=== PATIENT | female | born 1970 | race Hispanic/Latino ===

== ENCOUNTER 2017-02-16 16:37 | Inpatient (IN) | payer BC ==
[~2017-02-16] VITALS: Ht 152.4 cm; Wt 123.0 kg
[~2017-02-16 16:37] MED LIST: LOSARTAN POTAS100 MG PO; losartan PO
[2017-02-16] MEDS ORDERED: IBUPROFEN 400 MG TAB PO ONE (17:00)
[2017-02-16] MEDS ORDERED: ACETAMINOPHEN 325 MG TAB PO ONE (17:00)
[2017-02-16] MEDS ORDERED: ONDANSETRON HCL INJ 2 MG/ML VIAL IV STA (17:08)
[2017-02-16 17:45] LABS: BASOPHILS % 0.2 % (0.0-1.0); EOSINOPHILS % 0.1 % (0.0-6.0); HEMATOCRIT 39.5 % (34.2-44.1); HEMOGLOBIN 13.6 g/dL (12.0-16.0); LYMPHOCYTES # (AUTO) 0.5 (1.0-3.2); MEAN CORPUSCULAR HEMOGLOBIN 29.1 pg (28-32); MEAN CORPUSCULAR HGB CONC 34.4 g/dL (31-35); MEAN CORPUSCULAR VOLUME 84.6 fL (81-99); MONOCYTES # (AUTO) 0.6 (0.2-0.8); MONOCYTES % 3.6 % (4.4-11.3); NEUTROPHILS # (AUTO) 13.7 (2.1-6.9); NEUTROPHILS % 90.7 % (38.7-80.0); PLATELET COUNT 190 x10e3/uL (140-360); RED BLOOD COUNT 4.67 x10e6/uL (3.6-5.1)
[2017-02-16 18:02] LABS: ANION GAP 17.3 mmol/L (8-16); BLOOD UREA NITROGEN 14 mg/dL (7-26); BUN/CREATININE RATIO 15 (6-25); CALCIUM 9.5 mg/dL (8.4-10.2); CARBON DIOXIDE 23 mmol/L (22-29); CHLORIDE 98 mmol/L (98-107); CREATININE, SERUM 0.91 mg/dL (0.57-1.11); EST GLOMERULAR FILTRATION RATE > 60 ML/MIN (60-); GLUCOSE 110 mg/dL (74-118); POTASSIUM 3.3 mmol/L (3.5-5.1); SODIUM 135 mmol/L (136-145)
[2017-02-16 18:04] LABS: INR 0.94
--- NOTE | 2017-02-16 18:06 | Diagnostic Imaging Report ---
Two view chest x-ray INDICATION: Fever, cough COMPARISON: None. FINDINGS: The cardiomediastinal silhouette is normal. There is no evidence of hilar lymphadenopathy. The pulmonary vascular markings are normal. There is no evidence of focal consolidation or pleural effusion. Mild bronchial wall thickening is present. Evaluation of the osseous structures demonstrates no focal abnormality. IMPRESSION: Mild bronchial wall thickening suggestive of bronchitis. No infiltrates. Signed by: Dr. Bridger Whatley MD on 02/16/2017 6:03 PM
[2017-02-16 18:25] LABS: PARTIAL THROMBOPLASTIN TIME 30.4 seconds (23.8-35.5)
[2017-02-16] MEDS ORDERED: SODIUM CHLORIDE FLUSH 10 ML SYR INJ PRN (18:45)
[2017-02-16] MEDS ORDERED: ONDANSETRON HCL INJ 2 MG/ML VIAL IV PRN (18:45)
[2017-02-16] MEDS ORDERED: HYDROMORPHONE HCL 2 MG TAB PO PRN (19:30)
[2017-02-16 20:10] VITALS: BP 113/58
[2017-02-16 20:15] VITALS: BP 113/58
[2017-02-16] MEDS: VANCOMYCIN 1GM/NS 250 ML 250 ML IV SCH (21:53)
[2017-02-16 22:59] VITALS: BP 113/58
[2017-02-16] MEDS: ACETAMINOPHEN 325 MG TAB PO PRN (23:04)
[2017-02-16] MEDS: PIPER-TAZ 3.375 GM 100 ML IV SCH (23:05)
[2017-02-17] VITALS (7 sets, daily range): BP systolic 92–161; BP diastolic 56–91
[2017-02-17] MEDS ORDERED: LOSARTAN POTAS100 MG PO (03:11)
[2017-02-17] MEDS ORDERED: HYDROCHLOROTHIA25 MG PO (03:11)
[2017-02-17] MEDS ORDERED: NORVASC5 MG PO (03:11)
[2017-02-17] MEDS ORDERED: POTASSIUM CHLORIDE 20 MEQ TAB CR PO STA (04:26)
[2017-02-17] MEDS: PIPER-TAZ 3.375 GM 100 ML IV SCH ×3 (06:11→23:08)
[2017-02-17 07:04] LABS: BASOPHILS % 0.3 % (0.0-1.0); EOSINOPHILS % 0.3 % (0.0-6.0); HEMATOCRIT 34.4 % (34.2-44.1); HEMOGLOBIN 11.9 g/dL (12.0-16.0); LYMPHOCYTES # (AUTO) 0.4 (1.0-3.2); LYMPHOCYTES % 5.4 % (18.0-39.1); MEAN CORPUSCULAR HEMOGLOBIN 29.3 pg (28-32); MEAN CORPUSCULAR HGB CONC 34.6 g/dL (31-35); MEAN CORPUSCULAR VOLUME 84.7 fL (81-99); MONOCYTES # (AUTO) 0.3 (0.2-0.8); MONOCYTES % 3.1 % (4.4-11.3); NEUTROPHILS # (AUTO) 7.3 (2.1-6.9); NEUTROPHILS % 90.6 % (38.7-80.0); PLATELET COUNT 153 x10e3/uL (140-360); RED BLOOD COUNT 4.06 x10e6/uL (3.6-5.1); RED CELL DISTRIBUTION WIDTH 14.1 % (11.7-14.4)
[2017-02-17 07:28] LABS: CALCIUM 8.7 mg/dL (8.4-10.2); CREATININE, SERUM 1.12 mg/dL (0.57-1.11)
[2017-02-17] MEDS: VANCOMYCIN 1GM/NS 250 ML 250 ML IV SCH ×2 (09:00→20:54)
[2017-02-17] MEDS ORDERED: MAGNESIUM SULFATE 2GM/50ML 50 ML IV ONE (10:00)
[2017-02-17] MEDS ORDERED: POTASSIUM CHLORIDE 20 MEQ TAB CR PO ONE (10:30)
[2017-02-17] MEDS: SODIUM CHLORIDE 0.9% 1000ML 1,000 ML IV SCH (14:00)
[2017-02-17] MEDS: ACETAMINOPHEN 325 MG TAB PO PRN ×2 (16:30→20:54)
[2017-02-17] MEDS: ENOXAPARIN SOD INJ 40 MG/0.4 ML SYR SC SCH (17:00)
[2017-02-18] VITALS (7 sets, daily range): BP systolic 105–130; BP diastolic 59–72
[2017-02-18] MEDS: SODIUM CHLORIDE 0.9% 1000ML 1,000 ML IV SCH (02:58)
[2017-02-18 06:52] LABS: BASOPHILS % 0.3 % (0.0-1.0); EOSINOPHILS # (AUTO) 0.1 (0.0-0.4); EOSINOPHILS % 1.2 % (0.0-6.0); HEMATOCRIT 31.8 % (34.2-44.1); HEMOGLOBIN 10.9 g/dL (12.0-16.0); LYMPHOCYTES # (AUTO) 0.7 (1.0-3.2); LYMPHOCYTES % 11.4 % (18.0-39.1); MEAN CORPUSCULAR HEMOGLOBIN 29.5 pg (28-32); MEAN CORPUSCULAR HGB CONC 34.3 g/dL (31-35); MEAN CORPUSCULAR VOLUME 85.9 fL (81-99); MONOCYTES # (AUTO) 0.3 (0.2-0.8); MONOCYTES % 4.7 % (4.4-11.3); NEUTROPHILS # (AUTO) 4.9 (2.1-6.9); NEUTROPHILS % 81.9 % (38.7-80.0); PLATELET COUNT 155 x10e3/uL (140-360); RED CELL DISTRIBUTION WIDTH 14.6 % (11.7-14.4)
[2017-02-18] MEDS: PIPER-TAZ 3.375 GM 100 ML IV SCH (06:59)
[2017-02-18 07:35] LABS: ANION GAP 10.7 mmol/L (8-16); BLOOD UREA NITROGEN 8 mg/dL (7-26); BUN/CREATININE RATIO 10 (6-25); CALCIUM 8.6 mg/dL (8.4-10.2); CARBON DIOXIDE 23 mmol/L (22-29); CHLORIDE 107 mmol/L (98-107); CREATININE, SERUM 0.79 mg/dL (0.57-1.11); EST GLOMERULAR FILTRATION RATE > 60 ML/MIN (60-); GLUCOSE 95 mg/dL (74-118); MAGNESIUM 2.3 MG/DL (1.3-2.1); POTASSIUM 3.7 mmol/L (3.5-5.1); SODIUM 137 mmol/L (136-145)
[2017-02-18] MEDS: VANCOMYCIN 1GM/NS 250 ML 250 ML IV SCH (08:54)
[2017-02-18] MEDS: PIPER-TAZ 3.375 GM 50 ML IV SCH ×2 (14:30→22:42)
[2017-02-18] MEDS: ENOXAPARIN SOD INJ 40 MG/0.4 ML SYR SC SCH (17:00)
[2017-02-18] MEDS: VANCOMYCIN HCL 1.25 GM in SODIUM CHLORIDE 0.9% 250ML 300 ML IV SCH (20:46)
[2017-02-19] VITALS: BP 115/69
[2017-02-19] MEDS: ACETAMINOPHEN 325 MG TAB PO PRN ×2 (00:39→19:45)
[2017-02-19 04:00] VITALS: BP 128/77
[2017-02-19] MEDS: PIPER-TAZ 3.375 GM 50 ML IV SCH ×3 (05:50→22:15)
[2017-02-19 07:53] VITALS: BP 127/79
[2017-02-19] MEDS: VANCOMYCIN HCL 1.25 GM in SODIUM CHLORIDE 0.9% 250ML 300 ML IV SCH ×2 (09:32→22:00)
[2017-02-19 11:18] VITALS: BP 113/67
[2017-02-19] MEDS ORDERED: TRAMADOL HCL 50 MG TAB PO PRN (12:15)
[2017-02-19] MEDS ORDERED: ACETAMINOPHEN 325 MG TAB PO PRN (14:00)
[2017-02-19 15:40] VITALS: BP 100/63
[2017-02-19] MEDS: ENOXAPARIN SOD INJ 40 MG/0.4 ML SYR SC SCH (17:38)
[2017-02-19 20:00] VITALS: BP_SYST 135; BP_SYST 159; BP_DIAS 79; BP_DIAS 80
[2017-02-20] VITALS: BP 113/75
[2017-02-20 04:00] VITALS: BP 123/77
[2017-02-20] MEDS: PIPER-TAZ 3.375 GM 50 ML IV SCH ×3 (05:49→21:30)
[2017-02-20 07:49] VITALS: BP 119/69
[2017-02-20 11:21] VITALS: BP 124/61
[2017-02-20] MEDS: VANCOMYCIN HCL 1.25 GM in SODIUM CHLORIDE 0.9% 250ML 300 ML IV SCH (12:00)
[2017-02-20 15:48] VITALS: BP 128/60
[2017-02-20] MEDS: ENOXAPARIN SOD INJ 40 MG/0.4 ML SYR SC SCH (17:39)
[2017-02-20 20:00] VITALS: BP 130/71
[2017-02-20] MEDS: VANCOMYCIN HCL 1.5 GM in SODIUM CHLORIDE 0.9% 250ML 300 ML IV SCH (22:00)
[2017-02-20] MEDS: ACETAMINOPHEN 325 MG TAB PO PRN (22:22)
[2017-02-21] VITALS: BP 129/67
[2017-02-21 04:00] VITALS: BP 113/65
[2017-02-21] MEDS: PIPER-TAZ 3.375 GM 50 ML IV SCH (06:47)
[2017-02-21 07:43] LABS: BASOPHILS % 0.7 % (0.0-1.0); EOSINOPHILS # (AUTO) 0.3 (0.0-0.4); EOSINOPHILS % 5.7 % (0.0-6.0); HEMATOCRIT 32.1 % (34.2-44.1); HEMOGLOBIN 10.7 g/dL (12.0-16.0); LYMPHOCYTES # (AUTO) 1.1 (1.0-3.2); LYMPHOCYTES % 22.9 % (18.0-39.1); MEAN CORPUSCULAR HEMOGLOBIN 28.8 pg (28-32); MEAN CORPUSCULAR HGB CONC 33.3 g/dL (31-35); MEAN CORPUSCULAR VOLUME 86.5 fL (81-99); MONOCYTES # (AUTO) 0.4 (0.2-0.8); MONOCYTES % 8.3 % (4.4-11.3); NEUTROPHILS # (AUTO) 2.8 (2.1-6.9); PLATELET COUNT 218 x10e3/uL (140-360); RED BLOOD COUNT 3.71 x10e6/uL (3.6-5.1); RED CELL DISTRIBUTION WIDTH 14.4 % (11.7-14.4)
[2017-02-21 08:00] VITALS: BP 120/73
[2017-02-21 08:04] LABS: ANION GAP 12.6 mmol/L (8-16); BLOOD UREA NITROGEN 6 mg/dL (7-26); BUN/CREATININE RATIO 8 (6-25); CALCIUM 8.9 mg/dL (8.4-10.2); CARBON DIOXIDE 26 mmol/L (22-29); CHLORIDE 105 mmol/L (98-107); CREATININE, SERUM 0.75 mg/dL (0.57-1.11); EST GLOMERULAR FILTRATION RATE > 60 ML/MIN (60-); GLUCOSE 89 mg/dL (74-118); POTASSIUM 3.6 mmol/L (3.5-5.1); SODIUM 140 mmol/L (136-145)
[2017-02-21] MEDS: VANCOMYCIN HCL 1.5 GM in SODIUM CHLORIDE 0.9% 250ML 300 ML IV SCH (09:00)
[2017-02-21 09:57] LABS: BAND NEUTROPHILS % (MANUAL) 1 %; EOSINOPHILS % (MANUAL) 6 % (0-7); LYMPHOCYTES % (MANUAL) 24 % (19-48); MONOCYTES % (MANUAL) 4 % (3.4-9.0); NEUTROPHILS % (MANUAL) 63 % (40-74); PLATELET ESTIMATE ADEQUATE; PLATELET MORPHOLOGY COMMENT NORMAL; RBC MORPHOLOGY COMMENT NORMAL
[2017-02-21 12:00] VITALS: BP 113/74
[2017-02-21] MEDS ORDERED: BACTRIM DS TAB1 EACH PO (13:21)
--- NOTE | 2017-02-21 13:45 | Discharge Summary ---
FINAL DIAGNOSIS: Severe right lower leg cellulitis due to chronic lymphedema. SECONDARY DIAGNOSIS 1. Sepsis present on admission due to cellulitis, resolved. 2. Morbid obesity. 3. Hyponatremia, resolved. 4. Hypertension, stable. 5. Hypokalemia and magnesia, resolved. 6. Bronchitis, resolved. CONSULTANTS: None. PROCEDURES/STUDIES PERFORMED: Doppler of the leg was negative for DVT. HISTORY: Per H\T\P. HOSPITAL COURSE: Patient was admitted. Patient was put on IV vancomycin and Zosyn. Her white count normalized. She became afebrile. Her lymphangial spread slowly improved. Finally, it looks like her cellulitis is getting better. It took a while due to her chronic lymphedema. Patient is aware that potentially blisters may form subsequently. If so, just keep it clean. Patient will go home on 5 more days of Bactrim double strength b.i.d. She will follow up with her primary care doctor in 2 to 4 weeks. Family medical leave absence paperwork was filled out. Patient is excused until February 26, 2017. She may return back to work on February 27, 2017. It took 32 minutes total to discharge this patient. CONDITION ON DISCHARGE: Stable. DISCHARGE MEDICATIONS: Please see medication reconciliation form. JENA TRUJILLO M.D. Job#: [id number] EV cc:MACO VIDAL MD
== END 2017-02-21 14:26 | disposition home or self-care (01) | DRG 872 ==
LOC: ER 16:37 → ERHOLD 18:39 → MED/SURG3 19:55
PROVIDERS: ADMIT Internal Medicine; ATTEND Internal Medicine
DX: A41.9 Sepsis, unspecified organism (principal); E87.1 Hypo-osmolality and hyponatremia; I10 Essential (primary) hypertension; L03.116 Cellulitis of left lower limb; Z68.43 Body mass index [BMI] 50.0-59.9, adult; E66.01 Morbid (severe) obesity due to excess calories; J40 Bronchitis, not specified as acute or chronic; I89.0 Lymphedema, not elsewhere classified
CPT/HCPCS: 36415; 71020; 80048; 80202; 83605; 83735; 85025; 85610; 85730; 87040; 87400; 93970; 96361; 96367; 96372; 99284; J1650; J2405; J2543; J3370; J7030; J7050